=== PATIENT | female | born 1975 | race Caucasian/White ===

== ENCOUNTER 2023-06-17 09:18 | Emergency (ER) | payer BC ==
[~2023-06-17] VITALS: Ht 160 cm; Wt 57.6 kg
[2023-06-17 09:28] VITALS: BP_SYST 115; PULSE 78; RESP 18; TEMP 97.9; O2SAT 100
[2023-06-17 10:08] LABS: BILIRUBIN,URINE NEGATIVE (NEGATIVE); BLOOD, URINE NEGATIVE (NEGATIVE); CLARITY/URINE CLEAR (CLEAR); GLUCOSE,URINE NEGATIVE (NEGATIVE); KETONES,URINE NEGATIVE (NEGATIVE); LEUKOCYTE ESTERASE ,URINE NEGATIVE (NEGATIVE); NITRITE, URINE NEGATIVE (NEGATIVE); PH,URINE 7.5 (5.0-8.0); PROTEIN URINE NEGATIVE (NEGATIVE); UROBILINOGEN,URINE 0.2 (0.2-1.0)
[2023-06-17 10:10] LABS: COLOR,URINE STRAW (YELLOW)
[2023-06-17] MEDS: KETOROLAC TROMETHAMINE 30 MG VIAL IVP ONE (10:19)
[2023-06-17 10:26] LABS: BASOPHILS % (AUTO) 0.2 % (0.0-2.0); EOSINOPHILS # (AUTO) 0.1 K/uL (0.0-0.4); EOSINOPHILS % (AUTO) 0.8 % (0.0-4.0); HEMOGLOBIN 11.3 g/dL (12.0-16.0); LYMPHOCYTES # (AUTO) 1.3 K/uL (1.0-5.5); LYMPHOCYTES % (AUTO) 9.5 % (20.5-51.5); MEAN CORPUSCULAR HEMOGLOBIN 30 pg (27-31); MEAN CORPUSCULAR HGB CONC 33 % (32-36); MEAN CORPUSCULAR VOLUME 89 fL (79.0-98.0); MONOCYTES # (AUTO) 1.1 K/uL (0.0-1.0); MONOCYTES % (AUTO) 7.9 % (1.7-9.3); NEUTROPHILS # (AUTO) 10.9 K/uL (1.8-7.7); NEUTROPHILS % (AUTO) 81.6 % (40.0-70.0); PLATELET COUNT (AUTO) 319 K/uL (130-430); RED BLOOD CELL COUNT(AUTO) 3.81 MIL/uL (4.2-6.2); RED CELL DISTRIBUTION WIDTH 13.4 % (9.0-15.0); WHITE BLOOD COUNT (AUTO) 13.3 K/uL (4.8-10.8)
[2023-06-17 10:47] LABS: CREATININE 0.74 mg/dL (0.55-1.30); POTASSIUM 3.8 mmol/L (3.5-5.1)
[2023-06-17] MEDS ORDERED: HYDR-3917 PO (11:59)
[2023-06-17] MEDS ORDERED: CIPR500T5 PO (11:59)
[2023-06-17] MEDS ORDERED: METR-154 PO (11:59)
[2023-06-17 12:10] VITALS: BP_SYST 115; PULSE 78; RESP 18; TEMP 97.9; O2SAT 100
== END 2023-06-17 12:06 | disposition home or self-care (01) ==
LOC: SED 09:18
DX: K57.92 Diverticulitis of intestine, part unspecified, without perforation or abscess without bleeding (principal)
CPT/HCPCS: 99285; 74176; 96374; 80048; 81001; 85025; 36415; 81025; 81003; J1885